=== PATIENT | female | born 1970 | race Caucasian/White ===

== ENCOUNTER 2024-04-12 16:55 | Emergency (ER) | payer OTHER ==
[~2024-04-12] VITALS: Ht 180.3 cm; Wt 59.0 kg
[2024-04-12 17:12] VITALS: BP 198/130
[2024-04-12 18:04] VITALS: O2SAT 100
== END 2024-04-12 18:05 | disposition home or self-care (01) ==
LOC: ER 16:58
DX: I10 Essential (primary) hypertension (principal); E11.9 Type 2 diabetes mellitus without complications